=== PATIENT | female | born 1945 | race Caucasian/White ===

== ENCOUNTER 2017-02-10 06:30 | Observation (INO) | payer OTHER ==
[~2017-02-10] VITALS: Ht 165.1 cm; Wt 59.6 kg
[2017-02-10] VITALS (10 sets, daily range): BP systolic 100–157; BP diastolic 51–90; PULSE 54–76; TEMP 36.6–36.8; O2SAT 94–98; Ht 165.1 cm; Wt 59.6 kg
[2017-02-10] MEDS ORDERED: ASPI81TA28 PO (06:54)
[2017-02-10] MEDS ORDERED: CHOL100010 PO (06:54)
[2017-02-10] MEDS ORDERED: ANSHCCR PR (06:54)
[2017-02-10] MEDS ORDERED: GARL10007 PO (06:54)
[2017-02-10] MEDS ORDERED: METO25TA3 PO (06:54)
[2017-02-10] MEDS ORDERED: DOCU100C31 PO (06:54)
[2017-02-10] MEDS ORDERED: SIMV20TA2 PO (06:54)
[2017-02-10] MEDS ORDERED: PSYL28.310 (06:54)
[2017-02-10] MEDS ORDERED: DICY10CA55 PO (06:54)
[2017-02-10] MEDS ORDERED: CETI10TA84 PO (06:54)
[2017-02-10] MEDS ORDERED: MULT-506 PO (06:54)
[2017-02-10] MEDS ORDERED: CITA20TA4 PO (06:54)
[2017-02-10] MEDS ORDERED: FLUT0.15 NAE (06:54)
--- NOTE | 2017-02-10 08:02 | History & Physical Bridge Note ---
H&P Re-Evaluation Bridge Note: I have examined the patient, reviewed the History & Physical and in the interval since the performance of the History & Physical I have noted the following changes of clinical significance: No changes noted
--- NOTE | 2017-02-10 08:03 | Procedure Note ---
Pre-Mod Sedation Assessment General Date of Moderate Sedation: Feb 10, 2017. Vital Signs: Vital Signs Past 12 Hours Date Time Temp Pulse Resp B/P (MAP) Pulse Ox O2 Delivery O2 Flow Rate FiO2 02/10/17 07:14 36.6 76 16 157/90 98 Room Air Review Cardiovascular: regular rate, rhythm, + extra beats Abdomen: soft Lungs: lungs clear Airway Class: II Pre-Sedation Airway Assessment Oral Cavity: WNL Able to Visualize Vocal Cords: No Short Thick Neck: No Hx of Sleep Apnea: No Smoking Status: Never Smoker Mallampati Classification: Class II ASA Classification: Class II Procedure Planning Contraindications-for Mod Sed: None Yes Notes The planned sedation has been discussed with the patient and consent obtained. I have identified the patient, determined the appropriateness of sedation and have assessed the patient immediately prior to the procedure. All medicine(s) and interventions are by my order.
[2017-02-10] MEDS ORDERED: FENTANYL CITRATE INJ 50 MCG/1 ML 2 ML VIAL ONE ×2 (08:07→09:22)
[2017-02-10] MEDS ORDERED: MIDAZOLAM HCL 5 MG/ML 1 ML VIAL ONE (08:07)
[2017-02-10] MEDS ORDERED: HEPARIN SOD (PORCINE) 1000 UNIT/ML 10 ML VIAL ONE ×2 (08:27→09:39)
--- NOTE | 2017-02-10 10:50 | Procedure Note ---
Post-Mod Sedation Assessment General Date of Moderate Sedation Feb 10, 2017. Vital Signs: Vital Signs Past 12 Hours Date Time Temp Pulse Resp B/P (MAP) Pulse Ox O2 Delivery O2 Flow Rate FiO2 02/10/17 07:14 36.6 76 16 157/90 98 Room Air Review - Discharge Criteria Vital Signs Stable: Yes Alert/Oriented/Conversant: Yes Returned to Baseline Mental St: Yes Nausea Absent/Minimal: Yes Pain/Discomfort/Absent/Minimal: Yes Normal/Baseline Respirations: Yes Active Bleeding?: No Pt Received D/C Instructions: N/A Prescriptions Given: None Specific Proced. D/C Criteria Distal Pulses Present (Cardiac: Yes Groin site assessed-Card Cath: Yes Voided Prior To Discharge: N/A Discharged Patients Adult Escort/Transportation: N/A
--- NOTE | 2017-02-10 10:52 | [facility] Post Operative Brief Note ---
Immediate Operative Summary Operative Date Feb 10, 2017. Pre-Operative Diagnosis frequent pvcs, nicm Post-Operative Diagnosis same Procedure(s) Performed eps and 3d mapping of RV and LV; pvc ablation Surgeon jeimy contreras Cloth Bleaching Supervisor Surgeon(s) none Estimated Blood Loss <5cc Findings see official report Fluids (cc crystalloids) 200cc Specimens none Drains none Anesthesia 5mg versed and 125mcg fentantyl Complication(s) None Disposition PCU
[2017-02-10] MEDS ORDERED: ACETAMINOPHEN 325 MG TAB PO PRN (11:00)
--- NOTE | 2017-02-10 11:09 | Discharge Instructions ---
Discharge Instructions Date of Service Feb 10, 2017. Admission Reason for Admission: *No Anes Per [facility] Of[facility]* Pvc's Discharge Discharge Diagnosis / Problem: pvc Discharge Goals Goal(s): Improve function Activity Recommendations Activity Limitations: as noted below Lifting Limitations: no more than 10 pounds (no heavy lifting or squating for 1 week) Shower/Bathe: tomorrow Driving or Machine Use: resume 1 day after discharge . Instructions / Follow-Up Instructions / Follow-Up ACTIVITY RECOMMENDATIONS: It is common to feel weak and fatigue for a few days. * Do not drive or operate any motorized equipment for the next 1 day. * Limit stair usage (2 or 3 trips a day only) for the next 1 day. * Do not lift anything heavier than 10 pounds for the next 7 days. * Do not engage in vigorous exercise or any sports for the next five days. * You may shower the day after your procedure, but do not immerse the area for three days. Cleanse the site gently with soap and water. SPECIAL CARE INSTRUCTIONS: * You may replace the pressure dressing or band-aid the morning after the procedure. * After your procedure, it is normal to have a small bruise or small lump at the site. Examine your site daily for any change in the bruise or lump, redness, swelling, drainage or numbness. Notify your doctor if any change. BLEEDING: * If there is a small amount of bleeding at the site, lie down and apply firm pressure with a clean cloth for ten minutes. When the bleeding stops, lie quietly keeping the procedure limb straight for six hours. Notify your doctor as soon as possible. * If the bleeding does not stop after ten minutes or if there is a large amount of bleeding or spurting, call 911 immediately. Continue to lie down and hold firm pressure until help arrives. SKIN IRRITATION: * You may experience some redness and/or swelling in the area where radiation was administered. If any skin irritation occurs, please contact your family physician. FOLLOW UP VISIT: Keep any scheduled doctor appointments. Current Hospital Diet Patient's current hospital diet: Regular Diet Discharge Diet Recommended Diet: Regular Diet Procedures Procedures Performed: eps and 3d mapping of RV and LV; pvc ablation Pending Studies Studies pending at discharge: no Medical Emergencies . Who to Call and When: Medical Emergencies: If at any time you feel your situation is an emergency, please call 911 immediately. . Non-Emergent Contact Non-Emergency issues call your: [employer] Cutter . . "Provider Documentation" section prepared by Joseline Treviño. . VTE Core Measure Inpt VTE Proph given/why not?: Treatment not indicated
--- NOTE | 2017-02-10 11:12 | Discharge Summary ---
Discharge Summary Date of Service Feb 10, 2017. Discharge Summary Admission Date: 02/10/2017 Discharge Date: Feb 11, 2017 Discharge Disposition: Home Principal Diagnosis: pvc for lateral MV annulus Secondary Diagnoses/Problems: NICM EF 40-45% Moderate AI Sinus bradycardia HLD Procedures: EPS, 3d mapping of RVOT and LV; pvc ablation Medication Reconciliation Continued Medications: Aspirin (Aspirin Ec) 81 Mg Tab 81 MG PO DAILY Cetirizine (Zyrtec) 10 Mg Tab 10 MG PO DAILY, TAB Cholecalciferol (Vitamin D) 1,000 Unit Tab 1 TAB PO DAILY Citalopram Hydrobromide (Citalopram Hydrobromide) 20 Mg Tab 1 TAB PO DAILY for 30 Days, #30 TAB 5 Refills Dicyclomine Hcl (Bentyl) 10 Mg Cap 1-2 CAP PO QID for 30 Days, CAP 1 Refill Docusate Sodium (Docusate Sodium) 100 Mg Cap 1 CAP PO BID for 15 Days, #30 CAP Fluticasone Propionate (Nasal) (Flonase Allergy Relief) 50 Mcg/Act Spr 2 SPRAYS GUERRERO DAILY Garlic (Garlic) 1,000 Mg Cap 1 CAP PO DAILY Hydrocortisone (Proctosol Hc) 90 Appln/30 Gm Cr 1 APPLN VA BID for 7 Days, #28.35 GM Metoprolol Succ (Toprol Xl) (Toprol-Xl) 25 Mg Tabcr 25 MG PO DAILY, #30 TAB Multivitamin (Multivitamin) Tab 1 TAB PO DAILY, TAB Psyllium (Metamucil Smooth Texture) 28.3 % Pow take as directed. Simvastatin (Zocor) 20 Mg Tab 1 TAB PO DAILY for 90 Days, #90 TAB 1 Refill Admission Information Physical Exam (per Admitting): aaox3, NAD Supple, No JVD Nrl S1/S2, frequent PVCs CTA b/l no w/r/r soft NT/ND No edema b/l LE No focal deficits Skin intact Hospital Course Pt admitted for elective PVC ablation due to frequent PVCs and NICM. She underwent procedure without any complications PVCs mapped to lateral MV annulus ; ablation was successful-however she did have some PVCs overnight after procedure. Monitored overnight and discharged home. Total time spent on discharge = This includes examination of the patient, discharge planning, medication reconciliation, and communication with other providers. Discharge Instructions ACTIVITY RECOMMENDATIONS: It is common to feel weak and fatigue for a few days. * Do not drive or operate any motorized equipment for the next 1 day. * Limit stair usage (2 or 3 trips a day only) for the next 1 day. * Do not lift anything heavier than 10 pounds for the next 7 days. * Do not engage in vigorous exercise or any sports for the next five days. * You may shower the day after your procedure, but do not immerse the area for three days. Cleanse the site gently with soap and water. SPECIAL CARE INSTRUCTIONS: * You may replace the pressure dressing or band-aid the morning after the procedure. * After your procedure, it is normal to have a small bruise or small lump at the site. Examine your site daily for any change in the bruise or lump, redness, swelling, drainage or numbness. Notify your doctor if any change. BLEEDING: * If there is a small amount of bleeding at the site, lie down and apply firm pressure with a clean cloth for ten minutes. When the bleeding stops, lie quietly keeping the procedure limb straight for six hours. Notify your doctor as soon as possible. * If the bleeding does not stop after ten minutes or if there is a large amount of bleeding or spurting, call 911 immediately. Continue to lie down and hold firm pressure until help arrives. SKIN IRRITATION: * You may experience some redness and/or swelling in the area where radiation was administered. If any skin irritation occurs, please contact your family physician. FOLLOW UP VISIT: Keep any scheduled doctor appointments.
[2017-02-10] MEDS ORDERED: IV FLUIDS COMPLETED PRN (12:00)
[2017-02-10] MEDS ORDERED: ONDANSETRON INJ 2 MG/ML 2 ML VIAL ONE (13:12)
[2017-02-10] MEDS: DOCUSATE SODIUM 100 MG CAP PO SCH (20:20)
[2017-02-11 04:00] VITALS: BP 133/66; PULSE 69; TEMP 36.7; O2SAT 96
[2017-02-11] MEDS: DOCUSATE SODIUM 100 MG CAP PO SCH (07:53)
[2017-02-11 07:56] VITALS: BP 151/76; PULSE 69; TEMP 36.9; O2SAT 96
--- NOTE | 2017-02-11 08:45 | Cardiology Follow-Up ---
Subjective Subjective Date of Service: Feb 11, 2017. Pt evaluation today including: conversation w/ patient, physical exam, lab review Pain: none Review of Systems Constitutional: No fever, No fatigue Respiratory: No shortness of breath, No dyspnea on exertion Cardiac: No chest pain, No edema, No palpitations Abdomen: No nausea, No diarrhea Objective Vital Signs Last Vital Signs Documentation Date Time Temp Pulse Resp B/P (MAP) Pulse Ox O2 Delivery O2 Flow Rate FiO2 02/11/17 07:56 36.9 69 16 151/76 (101) 96 Room Air Physical Exam: General Appearance: WD/WN, no apparent distress Eyes: bilateral eyes PERRL, bilateral eyes EOMI Neck: supple Respiratory/Chest: lungs clear, normal breath sounds Cardiovascular: regular rate, rhythm, no murmur, + extra beats Abdomen: soft Neurologic/Psychiatric: alert, oriented x 3 Skin: warm/dry (the b/l groins nontender and no hematoma but noted for ecchymosis) Assessment and Plan Impression: 1. PVCs from lateral MV annulus s/p suppression of PVCs with ablation 2. NICM EF 45% 3. Moderate AI 4. HTN Plan: -PVCs are definitely suppressed from emma ablatio but not completely gone but less -Would continue toprol as her HR and BP are on the higher side -Ok for discharge home today -No heaving lifting or squatting for 1 week -F/u with me in 1 month Discharge planning: home Medications: Medications Administered Medications (Trade) Dose Ordered Sig/Laya Route Start Time Stop Time Status Last Admin Dose Admin Fentanyl Citrate (Fentanyl Inj) 100 mcg STK-MED ONCE .ROUTE 02/10/17 08:07 02/10/17 08:08 DC 02/10/17 08:07 100 MCG Midazolam HCl (Versed Inj) 5 mg STK-MED ONCE .ROUTE 02/10/17 08:07 02/10/17 08:08 DC 02/10/17 08:07 5 MG Heparin Sodium (Porcine) (Heparin Iv Bolus) 10,000 unit STK-MED ONCE .ROUTE 02/10/17 08:27 02/10/17 08:28 DC 02/10/17 08:27 10,000 UNIT Fentanyl Citrate (Fentanyl Inj) 100 mcg STK-MED ONCE .ROUTE 02/10/17 09:22 02/10/17 09:23 DC 02/10/17 09:22 25 MCG Heparin Sodium (Porcine) (Heparin Iv Bolus) 10,000 unit STK-MED ONCE .ROUTE 02/10/17 09:39 02/10/17 09:40 DC 02/10/17 09:39 10,000 UNIT Aspirin (Ecotrin Tab) 81 mg DAILY PO 02/11/17 09:00 03/13/17 08:59 02/11/17 07:53 81 MG Cetirizine HCl (zyrTEC TAB) 10 mg DAILY PO 02/11/17 09:00 03/13/17 08:59 02/11/17 07:53 10 MG Citalopram Hydrobromide (celeXA TAB) 20 mg DAILY PO 02/11/17 09:00 03/13/17 08:59 02/11/17 07:53 20 MG Docusate Sodium (coLACE CAP) 100 mg BID PO 02/10/17 21:00 03/12/17 20:59 02/11/17 07:53 100 MG Fluticasone Propionate (Flonase Nasal [place]) 2 sprays DAILY GUERRERO 02/11/17 09:00 03/13/17 08:59 02/11/17 07:54 2 SPRAYS Multivitamins (Multivitamin Tab) 1 tab DAILY PO 02/11/17 09:00 03/13/17 08:59 02/11/17 07:53 1 TAB Simvastatin (Zocor Tab) 20 mg DAILY PO 02/11/17 09:00 03/13/17 08:59 02/11/17 07:53 20 MG Ondansetron HCl (Zofran Inj) 4 mg STK-MED ONCE .ROUTE 02/10/17 13:12 02/10/17 13:13 DC 02/10/17 13:12 4 MG Lab Results: ECG:SR Telemetry: SR with some PVCS Last 24 Hours Test 02/10/17 09:05 02/10/17 09:34 02/10/17 09:50 02/10/17 10:01 Kaolin Activated Coagulation Time 158 SECONDS 197 SECONDS 219 SECONDS 213 SECONDS Test 02/10/17 10:12 02/10/17 10:34 02/10/17 11:33 02/10/17 12:19 Kaolin Activated Coagulation Time 219 SECONDS 208 SECONDS 180 SECONDS 158 SECONDS
[2017-02-11] MEDS ORDERED: MULTIVITAMIN TAB PO SCH (09:00)
[2017-02-11] MEDS ORDERED: METOPROLOL SUCC 25MG EXT REL TAB PO SCH ×2 (09:00)
[2017-02-11] MEDS ORDERED: FLUTICASONE PROPIONATE NA SPR 16 GM BTL NAE SCH (09:00)
[2017-02-11] MEDS ORDERED: CITALOPRAM 20 MG TAB PO SCH (09:00)
[2017-02-11] MEDS ORDERED: SIMVASTATIN 20 MG TAB PO SCH (09:00)
[2017-02-11] MEDS ORDERED: CETIRIZINE HCL 10 MG TAB PO SCH (09:00)
[2017-02-11] MEDS ORDERED: ASPIRIN 81 MG ECTAB PO SCH (09:00)
[2017-02-11 09:11] VITALS: BP 151/76; PULSE 69; TEMP 36.9; O2SAT 96
--- NOTE | 2017-02-11 14:56 | OPERATIVE REPORT ---
DATE OF OPERATION: 02/10/2017 PREOPERATIVE DIAGNOSIS: Frequent premature ventricular contractions. POSTOPERATIVE DIAGNOSIS: Same originating from the left mitral valve annulus area. PROCEDURE: Electrophysiology study, 3D mapping of the RVOT and the left ventricle along with PVC ablation. SURGEON: Dr. Joseline Treviño. STRUCTURAL RIGGER: None. ANESTHESIA: Monitored conscious sedation administered under my supervision by Rhiannon Saavedra. Start time 8:22, end time 10:33. Total of 5 mg of Versed, 125 mcg of fentanyl. INTRAVENOUS FLUIDS: 200 mL. BLOOD LOSS: Less than 5 mL. COMPLICATIONS: None. CONDITION: Stable. URINE OUTPUT: Not applicable. SPECIMENS: None. FINDINGS: See below. DRAINS: None. INDICATIONS: This is a 72-year-old female with past medical history for cardiomyopathy, ejection fraction of about 40-45%, nonrheumatic moderate aortic insufficiency, sinus bradycardia, frequent PVCs on Holter monitor over 20% and 20,000 and hyperlipidemia. She was recommended PVC ablation. CONSENT: Consent was obtained prior to the patient going into the electrophysiology lab. The patient explained the risks, benefits, and alternatives to the procedure. Risks include but not limited to sudden cardiac , cardiac arrhythmias, cerebrovascular accident, myocardial infarction, injury to the blood vessels, chamber of the heart, or the [place] electrical system where she would need a permanent pacemaker, bleeding and infection. The patient understood these risks and agreed to the procedure as planned. Informed consent was obtained. DESCRIPTION OF THE PROCEDURE: The patient was brought into the electrophysiology lab in a fasting state. He was connected to continuous threat monitoring analyst. Time out was performed to ensure patient's identity and procedure correctly. The patient was prepped and draped over the bilateral groins normal surgical standard fashion. [place] precautions were maintained throughout the procedure and monitored and conscious sedation was given throughout the procedure under my supervision for patient's comfort level. Ten mL of 1% lidocaine were given in the bilateral groins for local anesthesia. Using the modified Seldinger technique, venous access was obtained in the following way; 1. The right femoral vein had an 8 Turk[place] sheath, 8.5-Turkmen sheath in the right femoral vein. Initially there was an 8.5-Turk[place] sheath in the right femoral artery; however, this was removed and due to a little kinking of the sheath I could not get the catheter up so that was removed, pressure was held at some juncture during the case and I then got access on the left side. 2. Left femoral artery had an 8.5 [place] sheath. 3. We initially did 3D mapping, we tried to use the Biosense PentaRay however due to the patient's heart being on the smaller side it just caused too much ectopy and I could not do successful mapping so I used the Biosense DF curve ThermoCool SmartTouch ablation catheter to do 3D mapping of the PVCs from the right RVOT. Everything was pretty late and so we then went in through the retrograde through the aorta. Again, initially I had access through the right femoral artery; however, the sheath was kinked and I was not really able to get the catheter in so I did remove that sheath and held pressure. Then we rebolused her with heparin, kept an eye on that site throughout the case and I had venous access on the left femoral artery which is what I used. With the ablation catheter I mapped the PVCs coming from the LV to the area around the lateral portion of the mitral valve annulus. We had pretty good pace maps in the 90s as well as preQRS of 20 milliseconds and nice QS on unipolar so everything did look good. I gave 3 ablation paiz of 1 minute duration at 35 bartholomew to this region and there seemed to be suppression of the PVCs. I watched the patient for over 45 minutes without any PVCs; however, at the end of the procedure after everything was removed and she was over in the holding area I did notice a few PVCs coming back. During her waiting area I did do an electrophysiology study with the following findings: PA interval 91 milliseconds, QRS 63 milliseconds, QT 355 milliseconds, sinus cycle length 826 milliseconds, AH 80 milliseconds, HV 45 milliseconds, AV [place] 320 milliseconds. The AV node ERP was less than or equal to the atrial which was 600/290 and 400/260. The RV ERP was 600/260 and 400/230. Again, I waited for over 45 minutes. She did not have any PVCs during the lab. The sheaths were in the patient. Heparin drip was stopped and once the ACT came down the sheaths were pulled and manually compression was held to establish hemostasis. Again, it was at that time when she was in the cath holding and the sheaths were being pulled that we started noticing some PVCs. They definitely were not as frequent as when she had them before the procedure so I think we can say we did have a successful suppression of the PVCs, but not 100% elimination. IMPRESSION: 1. PVCs originating from the left region of the mitral valve annulus with ablation that suppressed the degree of the PVCs. 2. Normal atrioventricular thaddeus function. PLAN: Monitor patient overnight, 12-lead ECG. We will restart her home medications. She should not do any heavy lifting or squatting for 1 week and I will see her in my [place] office in 1 month. I attest to the content of the Intraoperative Record and any orders documented therein. Any exception s are noted below.
== END 2017-02-11 09:42 | disposition home or self-care (01) ==
LOC: C.EP 06:30 → ENRESERV 10:05 → C.MSICU 11:00
PROVIDERS: ADMIT Internal Medicine; ATTEND Internal Medicine
DX: I49.3 Ventricular premature depolarization (principal); E78.5 Hyperlipidemia, unspecified; I10 Essential (primary) hypertension; Z79.82 Long term (current) use of aspirin